=== PATIENT | female | born 1975 | race Two or more races ===

== ENCOUNTER 2023-10-29 09:53 | Day surgery (SDC) | payer BC ==
[2023-10-22 11:41] LABS: Urine WBC None Seen /hpf (0 - 5)
[2023-10-22 11:45] LABS: Basophils # (auto) 0.1 10 ^3/uL (0-0.2); Basophils % (auto) 0.8 % (0.0-2.0); Eosinophils # (auto) 0.1 10 ^3/uL (0-0.8); Eosinophils % (auto) 1.4 % (0.0-7.0); Hematocrit 43.9 % (36.0-46.0); Hemoglobin 14.8 g/dL (12.2-16.2); Lymphocytes # (auto) 2.6 10 ^3/uL (0.4-5.4); Lymphocytes % (auto) 33.8 % (10.0-50.0); Mean Corpuscular Hemoglobin 30.7 pg (28.0-32.0); Mean Corpuscular Hgb Conc. 33.8 g/dL (32.0-36.0); Mean Corpuscular Volume 90.7 fL (80.0-100.0); Monocytes # (auto) 0.4 10 ^3/uL (0-1.3); Neutrophils # (auto) 4.6 10 ^3/uL (1.6-8.6); Red Blood Cells 4.84 10^6/uL (4.0-5.20); Red Cell Distribution Width 14.2 % (11.8-14.3); White Blood Cell 7.8 10^3/uL (4.4-10.8)
[2023-10-22 12:05] LABS: INR 0.98 (0.9-1.15); Partial Thromboplastin Time 28.1 SEC (24.5-34.5); Prothrombin Time 10.3 sec (9.3-11.8)
[2023-10-22 12:14] LABS: Urine Bacteria NONE SEEN /hpf (None Seen); Urine Blood Negative /uL (Negative); Urine Clarity Clear (Clear); Urine Color Colorless (Yellow); Urine Protein, UAD Negative (Negative); Urine Specific Gravity 1.004 (1.001-1.035); Urine Urobilinogen Normal (Negative); Urine pH 6.5 (5.0-8.0)
[2023-10-22 12:21] LABS: Alanine Aminotransferase 34 U/L (7-40); Albumin 4.8 g/dL (3.2-4.8); Alkaline Phosphatase 58 U/L (46-116); Anion Gap 5 (5-15); Aspartate Aminotransferase 21 U/L (13-40); BUN/Creatinine Ratio 8.3 (10.0-20.0); Blood Urea Nitrogen 6 mg/dL (9-23); Calcium 10.1 mg/dL (8.5-10.1); Carbon Dioxide 29 mmol/L (20-30); Chloride 104 mmol/L (98-107); Glucose 95 mg/dL (74-106); Potassium 4.3 mmol/L (3.5-5.1); Sodium 138 mmol/L (136-145)
[2023-10-22 12:22] LABS: Bilirubin, Total 0.5 mg/dL (0.2-1.0); Total Protein 7.6 g/dL (5.7-8.2)
[~2023-10-29] VITALS: Ht 157.5 cm; Wt 80.3 kg
[~2023-10-29 09:53] MED LIST: CELE200C PO; GLIP-218 PO; IBUP-1456 PO; LATA0.008 OP; METF-372 PO
[2023-10-29] MEDS ORDERED: SODIUM CHLORIDE LOCK 10 ML ONE (10:18)
[2023-10-29] MEDS: MIDAZOLAM HCL 5 MG/ML-1ML VIAL ONE (11:28)
[2023-10-29] MEDS: fentaNYL CITRATE 100 MCG/2 ML VL ONE (11:28)
[2023-10-29] MEDS: diphenhdrAMINE HCL 50 MG/1 ML VL ONE (11:28)
[2023-10-29 11:45] VITALS: PULSE 87; RESP 14; TEMP 98.9; O2SAT 100
[2023-10-29 12:15] VITALS: BP 144/84; PULSE 73; RESP 15; O2SAT 99
== END 2023-10-29 12:29 | disposition home or self-care (01) ==
LOC: GI 09:53
PROVIDERS: ATTEND Internal Medicine Gastroenterology
DX: R10.32 Left lower quadrant pain (principal); E11.9 Type 2 diabetes mellitus without complications; Z79.84 Long term (current) use of oral hypoglycemic drugs; Z79.1 Long term (current) use of non-steroidal anti-inflammatories (NSAID); Z79.899 Other long term (current) drug therapy; Z98.51 Tubal ligation status; Z90.710 Acquired absence of both cervix and uterus; Z98.890 Other specified postprocedural states
CPT/HCPCS: 36415; 45378; 80053; 81001; 81025; 82962; 84702; 85025; 85610; 85730; J1200; J2250; J3010; J7030; 99152